=== PATIENT | male | born 1950 | race Caucasian/White ===

== ENCOUNTER → 2020-03-22 | Outpatient (CLI) | payer OTHER ==
[~2020-03-22] MED LIST: ALBUTEROL2.5 MG/0.5 INH; CALCIUM 600 +1 EA11 PO; OMEPRAZOLE40 MG PO; PROLIA60 MG/1 ML SUBQ; SUPER THERAVIT1 EACH PO; TRELEGY ELLIPT1 EACH INH; VENTOLIN HFA 1818 GM INH
== END ==
LOC: LAB → CAT 11:52
PROVIDERS: ATTEND Pediatrics
DX: Z01.812 Encounter for preprocedural laboratory examination (principal); Z20.828 Contact with and (suspected) exposure to other viral communicable diseases; I25.10 Atherosclerotic heart disease of native coronary artery without angina pectoris; R91.8 Other nonspecific abnormal finding of lung field

== ENCOUNTER → 2020-03-28 | Outpatient (CLI) | payer OTHER ==
[~2020-03-28] VITALS: Ht 172.7 cm; Wt 86.2 kg
[2020-03-28 08:30] VITALS: BP 159/95
--- NOTE | 2020-03-29 16:06 | PATH ---
[facility] [address] [place] [address] PATHOLOGY RPT PROCEDURE Name: SUPA PLAZA Room #: REG [facility] Tri.#: [id number] Admission: 03/28/20 Date of : 46 Discharge: Report #: [id number] Path Case #: [id number] Note LCA Accession Number: [id number] TESTS RESULT FLAG UNITS REF RANGE LAB Clinician Provided Cytology Information No. of containers..01 Slide Source: 01 BRONCH BRSHNG RUL #2 DIAGNOSIS: 02 BRONCH BRSHNG RUL #2 NEGATIVE FOR MALIGNANT CELLS. REACTIVE BRONCHIAL CELLS ARE PRESENT. PULMONARY MACROPHAGES (DUST CELLS) ARE PRESENT. RED BLOOD CELLS ARE PRESENT. Pathologist ICD10: 02 R91.8 Signed out by: 02 Leticia Mata MD, Pathologist NPI- [id number] Performed by: Minerva Rothman, [employer] ([facility]) Gross description: 01 2 FIXED /LCS 03/28/2020 1734 Local FLAG LEGEND: L-Low Normal,H-High Normal,LL-Alert Low,HH-Alert High <-Panic Low,>-Panic High,A-Abnormal,AA-Critical Abnormal Performed at: [address] [place] [address] Nnamdi Almeida MD, [address] [address] Leticia Mata MD, Specimen Comment: A courtesy copy of this report has been sent to [phone] Specimen Comment: [phone] Specimen Comment: Report sent to / DR OLIVA Performed at: [address], [place], [place] [id number] MD Nnamdi Almeida MD Phone: [phone]
--- NOTE | 2020-03-29 16:06 | PATH ---
[facility] [address] [place] [address] PATHOLOGY RPT PROCEDURE Name: SUPA PLAZA Room #: REG [facility].#: [id number] Admission: 03/28/20 Date of : 46 Discharge: Report #: [id number] Path Case #: [id number] Note LCA Accession Number: [id number] TESTS RESULT FLAG UNITS REF RANGE LAB Clinician Provided Cytology Information No. of containers..01 Other (Miscellaneous) Source: BRONCH WASH NATHAN DIAGNOSIS: BRONCH WASH NATHAN NEGATIVE FOR MALIGNANT CELLS. NORMAL BRONCHIAL CELLS AND MACROPHAGES ARE PRESENT. RED BLOOD CELLS ARE PRESENT. Pathologist ICD10: 02 R91.8 Signed out by: 02 Leticia Mata MD, Pathologist NPI- [id number] Performed by: 01 Jenifer Rothman, Desk Interviewer ([facility]) Gross description: 01 15ML, RED, 1 TP /LCS 03/28/2020 1741 Local FLAG LEGEND: L-Low Normal,H-High Normal,LL-Alert Low,HH-Alert High <-Panic Low,>-Panic High,A-Abnormal,AA-Critical Abnormal Performed at: [address] [place] [address] Nnamdi Almeida MD, [address] [address] Leticia Mata MD, Specimen Comment: A courtesy copy of this report has been sent to [phone] Specimen Comment: [phone] Specimen Comment: Report sent to / DR OLIVA Performed at: [address], [place], [place] [id number] MD Nnamdi Almeida MD Phone: [phone]
--- NOTE | 2020-03-29 16:06 | PATH ---
[facility] [address] [place] [address] PATHOLOGY RPT PROCEDURE Name: SUPA PLAZA Room #: REG [facility] Tri.#: [id number] Admission: 03/28/20 Date of : 46 Discharge: Report #: [id number] Path Case #: [id number] Note LCA Accession Number: [id number] TESTS RESULT FLAG UNITS REF RANGE LAB Clinician Provided Cytology Information No. of containers..01 Other (Miscellaneous) Source: [facility] TIP RUL#2 DIAGNOSIS: 02 [facility] TIP RUL#2 NEGATIVE FOR MALIGNANT CELLS. NORMAL BRONCHIAL CELLS AND MACROPHAGES ARE PRESENT. PULMONARY MACROPHAGES (DUST CELLS) ARE PRESENT. RED BLOOD CELLS ARE PRESENT. Pathologist ICD10: 02 R91.8 Signed out by: 02 Leticia Mata MD, Pathologist NPI- [id number] Performed by: Minerva Rothman, [employer] ([facility]) Gross description: 1 TP /HERI 03/28/2020 1737 Local FLAG LEGEND: L-Low Normal,H-High Normal,LL-Alert Low,HH-Alert High <-Panic Low,>-Panic High,A-Abnormal,AA-Critical Abnormal Performed at: [address] [place] [address] Nnamdi Almeida MD, [address] [address] Leticia Mata MD, Specimen Comment: A courtesy copy of this report has been sent to [phone] Specimen Comment: [phone] Specimen Comment: Report sent to / DR OLIVA Performed at: [address], [place], [place] [id number] MD Nnamdi Almeida MD Phone: [phone]
--- NOTE | 2020-03-29 16:06 | PATH ---
[facility] [address] [place] [address] PATHOLOGY RPT PROCEDURE Name: SUPA PLAZA Room #: REG [facility].#: [id number] Admission: 03/28/20 Date of : 46 Discharge: Report #: [id number] Path Case #: [id number] Note LCA Accession Number: [id number] TESTS RESULT FLAG UNITS REF RANGE LAB Clinician Provided Cytology Information No. of containers..01 Slide Source: TBNA ASPIRATE NATHAN DIAGNOSIS: TBNA ASPIRATE NATHAN INADEQUATE, INSUFFICIENT CELLS FOR STUDY. SPECIMEN CONSISTS OF BLOOD. Pathologist ICD10: 02 R91.8 Signed out by: Leticia Mata MD, Pathologist NPI- [id number] Performed by: Jenifer Rothman, Municipal Engineer ([facility]) Gross description: 2 FIXED /LCS 03/28/2020 1739 Local FLAG LEGEND: L-Low Normal,H-High Normal,LL-Alert Low,HH-Alert High <-Panic Low,>-Panic High,A-Abnormal,AA-Critical Abnormal Performed at: [address] [place] [address] Nnamdi Almeida MD, [address] [address] Leticia Mata MD, Specimen Comment: A courtesy copy of this report has been sent to [phone] Specimen Comment: [phone] Specimen Comment: Report sent to / DR OLIVA Performed at: [address], [place], [place] [id number] MD Nnamdi Almeida MD Phone: [phone]
--- NOTE | 2020-04-01 18:06 | PATH ---
[facility] [address] [address] PATHOLOGY RPT PROCEDURE Name: BALDOMERO PLAZA Room #: REG [facility]..#: [id number] Admission: 03/28/20 Date of : 46 Discharge: Report #: [id number] Path Case #: [id number] LCA Accession Number: [id number] . 01 Material submitted: . PART A: bronchus - RUL TISSUE BIOPSY. Modifiers: right, upper lobe PART B: bronchus - RUL TISSUE BIOPSY #2. Modifiers: right, upper lobe, 2 PART C: bronchus - NATHAN TBNA NEEDLE. Modifiers: left, upper lobe PART D: bronchus - NATHAN TISSUE BIOPSY. Modifiers: left, upper lobe . 01 Clinical history: . LUNG NODULES . 02 Diagnosis: A. Lung, right upper lobe tissue, biopsy: - Moderate chronic inflammation. - Reactive changes. - Negative for dysplasia or malignancy. . B. Lung, right upper lobe tissue #2, biopsy: - Moderate chronic inflammation. - Reactive changes. - Negative for dysplasia or malignancy. . C. Lung, left upper lobe, TBNA biopsy: - Scantly cellular specimen showing macrophages, abundant blood and inflammatory cells. - Negative for malignancy. . D. Lung, left upper lobe tissue, biopsy: - Moderate chronic inflammation along with calcifications. - Reactive changes. - Negative for dysplasia or malignancy. (IUV:pit 04/01/2020) [facility] 04/01/2020 1058 Local . 02 Comment: Dr. Eleazar Bateman and Dr. Jil Winslow have seen printing sales representative slides of this case and concur with my diagnosis. (IUV:pit 04/01/2020) . 02 Electronically signed: . Leticia Mata MD, Pathologist NPI- [id number] . 01 Gross description: . A. The specimen is received in formalin, labeled "[place] [address] [address] PATHOLOGY RPT PROCEDURE Name: BALDOMERO PLAZA J Room #: REG [facility]#: [id number] Admission: 03/28/20 Date of : 46 Discharge: Report #: [id number] Path Case #: [id number] biopsy spot 1" consists of multiple fragments of brown tissue measuring 0.8 x 0.5 x 0.1 cm in aggregate which are entirely submitted in A1. . B. The specimen is received in formalin, labeled "Boehs, Baldomero, RUL biopsy spot 2" and consists of a few minute fragments of bradshaw-brown tissue measuring 0.5 x 0.2 x 0.1 cm in aggregate which are entirely submitted in B1. . C. The specimen is received in formalin, labeled "Boehs, Baldomero, NATHAN TBNA needle" and consists of minute pink needle cores measuring 0.4 x 0.2 x 0.1 cm aggregate which are entirely submitted in C1. . D. The specimen is received in formalin, labeled "Boehs, Baldomero, NATHAN biopsy" and consists of multiple fragments of bradshaw-brown tissue measuring 1.1 x 0.3 x 0.2 cm in aggregate which are entirely submitted in D1. (SDY; 03/29/2020) SYU/SYU 03/29/2020 1438 Local . 02 Pathologist provided ICD-10: J98.4 . 02 CPT . 892663, [id number], 943573, 419302 Specimen Comment: A courtesy copy of this report has been sent to [phone] Specimen Comment: [phone] Specimen Comment: Report sent to / DR OLIVA Performed at: [address] [facility], [place], [place] [id number] MD Nnamdi Almeida MD Phone: [phone] Performed at: [address] [facility] [id number] MD Leticia Mata MD Phone: [phone]
== END | disposition home or self-care (01) ==
LOC: PUL 03-15 10:46
PROVIDERS: ATTEND Pediatrics
DX: R91.8 Other nonspecific abnormal finding of lung field (principal); J98.4 Other disorders of lung
CPT/HCPCS: 50010; 62110; 62900; 70005